=== PATIENT | female | born 1980 | race Caucasian/White ===

== ENCOUNTER → 2016-07-04 | Outpatient (CLI) | payer OTHER ==
--- NOTE | 2016-07-04 14:52 | US ---
July 04, 2016 Dear Providers at the [facility], Thank you for requesting a ultrasound to evaluate anatomy for your patient, Mrs. Becker. As you know, Meredith is a 36 year old G 2, P 1001 with a laguna dating 21 w 1 d; THOMAS of 05/20 by 14 week ultrasound. Aneuploidy screening was performed and she had a reassuring NIPT. Her first was uncomplicated and she delivered vaginally at term. ULTRASOUND Number of fetuses: 1 Placental location: Posterior; no evidence of previa Placental cord insertion: Intraplacental presentation: Variable Cervix: 3.9 cm viewed transabdominally Maximum Vertical Pocket: 4.2 cm The adnexa were evaluated. No pathology was seen. Right ovary is visualized and seen as normal. It measures 4.1 x 2.2 x 1.1 cm. Left ovary is not seen on today's ultrasound. MEASUREMENTS: Biparietal diameter: 48 mm 20 weeks, 3 days Head circumference: 179 mm 20 weeks, 3 days Abdominal circumference: 170 mm 22 weeks, 0 days Femur length: 32 mm 20 weeks, 1 days Humerus length: 32 mm 20 weeks, 5 days Transcerebellar diameter: 21 mm 20 weeks, 1 days Average ultrasound age: 20 weeks, 6 days Estimated weight: 391 gm weight percentile: 37% ANATOMY Supratentorial brain: Normal including views of the falx, cavum septum pellucidum and choroids Lateral Ventricle: Normal, measuring 6.1 mm Posterior fossa: Normal including the cerebellum and cisterna magna Spine: Normal Nuchal fold: 3.8 mm normal Face: Normal views of the lip and nose area Profile: Normal Palate: Normal appearance of the alveolar ridge Heart: Four Chamber View: Normal LVOT: Normal RVOT: Normal 3VV: Seen Trachel View Seen Aortic Arch: Seen Ductal Arch: Seen SVC/IVC: Seen Heart Rate 152 bpm Diaphragm: Normal appearance without overt abnormality detected Stomach: Normal Umbilical cord insertion: Normal Right kidney: Normal Left kidney: Normal Bladder: Normal Number of cord vessels: Three Upper extremities: Normal Lower extremities: Normal Gender: Male; disclosing at a later date IMPRESSION: 1. Intrauterine at 21 w 1 d, ultrasound is consistent with her established THOMAS of 11/13/16 . 2. Normal anatomical survey. 3. Cervical length is normal at 3.9 cm without evidence of insufficiency. RECOMMENDATIONS: I was pleased to review today's ultrasound with your patient and her spouse. I reassured them that t he baby is growing appropriately with normal amniotic fluid volume. Our detailed review of the anatomy did not reveal any overt abnormalities. Future ultrasound and consultation is left to your clinical discretion. Thank you for allowing us the opportunity to evaluate your patient. Should you have any further ques tions or concerns please do not hesitate to contact me. Low risk; no E&M. Lisa Pratt MD Protective Signal Operator Maternal Medicine Diagnosis Department of Obstetrics & Gynecology [facility]
--- NOTE | 2016-07-04 17:13 | US ---
OB Sonogram History: 21 weeks 1 day, check growth and anatomy, THOMAS November 13, 2016 Comparison: May 18, 2016 Findings: A laguna fetus remains in variable lie. The placenta is posterior without previa. The po sterior margin of the placenta is approximately 3.4 cm above the internal os. The umbilical cord inse rts normally into the placenta. The right maternal ovary is normal. The left was not visualized. The cervix measures 3.9 cm transabdominally and is closed. Maximum amniotic fluid pocket = 4.2 cm. The visualized intracranial contents, face and spine look normal. The heart i s 4 chambered with a intraventricular septum and normal right and left ventricular outflow tracks. Fe jamal heart rate = 1 52 bpm. The umbilical cord has 3 vessels and a normal insertion site. Fluid is yun ntified in the stomach and urinary bladder. The renal region looks normal. 4 extremities are present. BPD = 48 mm = 20 weeks 3 days Head circumference = 1 79 mm = 20 weeks 3 days Abdominal circumference = 170 mm = 22 weeks 0 days Femur length = 32 mm = 20 weeks 1 day Humeral length = 32 mm = 20 weeks 5 days Cerebellar width = 21 mm = 20 weeks 1 day Cisterna magna = 3 mm Estimated weight = 37 percentile Average gestational age by ultrasound 20 weeks 6 days Ultrasound THOMAS November 15, 2016 Impression: Size consistent with dates. This report should be read in conjunction with a consultation by Dr. Lisa Pratt.
== END ==
LOC: FIMAGING 13:33
PROVIDERS: ATTEND Advanced Practice Midwife
DX: Z34.82 Encounter for supervision of other normal pregnancy, second trimester (principal); Z3A.21 21 weeks gestation of pregnancy